=== PATIENT | female | born 1965 | race Caucasian/White ===

== ENCOUNTER 2020-05-02 10:20 | Emergency (ER) | payer OTHER ==
[~2020-05-02] VITALS: Ht 157.5 cm; Wt 90.7 kg
[2020-05-02 10:37] VITALS: BP 120/51
[2020-05-02] MEDS ORDERED: methylPREDNISolone SOD SUCC 125 MG/2 ML VL IM ONE (11:00)
[2020-05-02] MEDS ORDERED: EPINEPHrine HCL 1 MG/1 ML AMP SC ONE (11:00)
== END 2020-05-02 11:42 | disposition home or self-care (01) ==
LOC: ER 10:20
DX: T78.40XA Allergy, unspecified, initial encounter (principal); X58.XXXA Exposure to other specified factors, initial encounter
CPT/HCPCS: 96372; 99284; J0171; J2930